=== PATIENT | female | born 1995 | race Caucasian/White ===

== ENCOUNTER → 2019-01-14 | Outpatient (CLI) | payer OTHER | LOC: COL.VAS 14:52 | DX: I82.401 Acute embolism and thrombosis of unspecified deep veins of right lower extremity (principal) ==

== ENCOUNTER → 2019-06-23 | Outpatient (CLI) | payer OTHER | LOC: COL.VAS 09:44 | DX: I82.401 Acute embolism and thrombosis of unspecified deep veins of right lower extremity (principal) ==